=== PATIENT | female | born 1975 | race Asian ===

== ENCOUNTER 2017-03-23 10:39 | Emergency (ER) | payer OTHER ==
[~2017-03-23] VITALS: Ht 157.5 cm; Wt 52.2 kg
[2017-03-23 10:42] VITALS: Ht 157.5 cm; Wt 52.2 kg
[2017-03-23 12:39] LABS: BASOPHIL % 0.9 % (0-2); PLATELET COUNT 323 x10^3mcL (130-400)
[2017-03-23 12:44] LABS: RED CELL DISTRIBUTION WIDTH 14.7 % (11.5-14.5)
[2017-03-23 13:32] VITALS: BP 121/81
== END 2017-03-23 13:32 | disposition home or self-care (01) ==
LOC: ED 10:39
PROVIDERS: Emergency Medicine
DX: O26.891 Other specified pregnancy related conditions, first trimester (principal); Z3A.00 Weeks of gestation of pregnancy not specified
CPT/HCPCS: 36415; J8597

== ENCOUNTER → 2017-05-03 | Outpatient (CLI) | payer OTHER | END | disposition home or self-care (01) | LOC: LB 14:20 | DX: Z33.1 Pregnant state, incidental (principal) | CPT/HCPCS: 87491; 87591 ==

== ENCOUNTER → 2017-05-31 | Outpatient (CLI) | payer OTHER ==
[2017-05-31 13:27] LABS: microscopic required? NO
[2017-05-31 14:24] LABS: UA SPECIFIC GRAVITY 1.025 (1.005-1.035); urine erythrocyte NEGATIVE (NEGATIVE)
== END | disposition home or self-care (01) ==
LOC: LB 12:53
DX: Z33.1 Pregnant state, incidental (principal)
CPT/HCPCS: 82947

== ENCOUNTER → 2017-07-21 | Outpatient (CLI) | payer OTHER ==
[2017-07-21 07:48] LABS: BASOPHIL % 0.9 % (0-2); PLATELET COUNT 335 x10^3mcL (130-400); RED CELL DISTRIBUTION WIDTH 13.6 % (11.5-14.5)
[2017-07-21 08:06] LABS: GLUCOSE FASTING 84 mg/dL (70-110)
== END | disposition home or self-care (01) ==
LOC: LB 07:06
PROVIDERS: Obstetrics & Gynecology
DX: Z33.1 Pregnant state, incidental (principal)

== ENCOUNTER → 2017-10-18 | Outpatient (CLI) | payer OTHER | END | disposition home or self-care (01) | LOC: LB 13:41 | DX: Z34.83 Encounter for supervision of other normal pregnancy, third trimester (principal) ==